=== PATIENT | male | born 2005 | race Caucasian/White ===

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

== ENCOUNTER 2024-12-09 01:03 | Emergency (ER) | payer SELFPAY ==
[~2024-12-09] VITALS: Ht 167.6 cm; Wt 81.0 kg
[2024-12-09 01:27] VITALS: O2SAT 98
[2024-12-09 02:42] LABS: BASOPHILS % 0.6 % (0.0-2.0); EOSINOPHILS % 2.7 % (0.0-5.0); HEMATOCRIT. 42.7 % (42.0-52.0); HEMOGLOBIN. 14.7 g/dL (14.0-18.0); LYMPHOCYTES % 35.4 % (20.0-50.0); MEAN PLATELET VOLUME 8.7 fl (7.4-10.4); MONOCYTES % 8.1 % (2.0-8.0); NEUTROPHILS % 53.2 % (40.0-76.0); PLATELET 227 x1000/uL (130-400); RED BLOOD CELL COUNT 5.17 mill/uL (4.7-6.1); RED CELL DISTRIBUTION WIDTH 13.5 % (11.6-14.6)
[2024-12-09 03:02] LABS: CREATININE 1.1 mg/dL (0.6-1.3); UREA NITROGEN BLOOD 15 mg/dL (9-23)
[2024-12-09 04:41] LABS: BG DEOXYHEMOGLOBIN 48.4 % (0.0-5.0)
[2024-12-09 05:10] VITALS: BP 104/81; PULSE 94; RESP 20; TEMP 37.1; O2SAT 98
== END 2024-12-09 05:16 | disposition home or self-care (01) ==
LOC: ER 01:12
DX: T59.811A Toxic effect of smoke, accidental (unintentional), initial encounter (principal); R11.2 Nausea with vomiting, unspecified; R51.9 Headache, unspecified; Z79.899 Other long term (current) drug therapy; Y92.89 Other specified places as the place of occurrence of the external cause
CPT/HCPCS: 36415; 80048; 82375; 82803; 85025; 93005; 99284